=== PATIENT | female | born 1965 | race Caucasian/White ===

== ENCOUNTER 2017-12-07 21:50 | Emergency (ER) | payer MEDICAID, OTHER ==
[~2017-12-07] VITALS: Ht 172.7 cm; Wt 94.7 kg
[~2017-12-07 21:50] MED LIST: CITA-278 PO; CYCL-394 PO; HYDR-569 PO; IBUP-1984 PO; LEVO200T43 PO; LORA1TAB PO; NORCO10T PO; PHEN-873 PO
[2017-12-07 22:33] LABS: CLARITY,URINE CLEAR (Clear); COLOR,URINE YELLOW (Yellow); GLUCOSE, URINE NEGATIVE (Neg); KETONES,URINE NEGATIVE (Neg); LEUKOCYTE ESTERASE ,URINE NEGATIVE (Neg); NITRITES, URINE NEGATIVE (Neg); OCCULT BLOOD,URINE TRACE-INTACT (Neg); PH,URINE 5.5 (4.8-8.0); PROTEIN,URINE NEGATIVE (Neg); UROBILINOGEN,URINE 0.2 E.U/dL (0.2-1.0)
[2017-12-07 22:34] LABS: UA COLLECTION TYPE CLN CATCH MIDSTREAM
[2017-12-07 22:36] LABS: URINE HCG NEGATIVE (NEG)
[2017-12-07 22:40] LABS: BACTERIA,URINE NONE SEEN /HPF (Neg); MUCUS STRANDS FEW /LPF (Neg); RBC,URINE 0-2 /HPF (0-2); SQUAMOUS EPITHELIAL CELL,UR FEW /LPF (FEW); WBC,URINE NONE SEEN /HPF (0-4)
[2017-12-08] MEDS ORDERED: morphine 4 MG/ML inj SYRINge IV ONE (01:35)
[2017-12-08] MEDS ORDERED: ondansetron/PF 4mg/2ml inj IV ONE (01:35)
[2017-12-08] MEDS ORDERED: normal saline 1000ML IV soln IVB ONE (01:35)
[2017-12-08 01:53] LABS: BASOPHILS % (AUTO) 0.8 % (0-1); EOSINOPHILS # (AUTO) 0.2 X10'3 (0-0.9); EOSINOPHILS % (AUTO) 3.3 % (0-6); HEMATOCRIT 37.2 % (35.0-45.0); HEMOGLOBIN 12.8 g/dl (12.0-16.0); LYMPHOCYTES # (AUTO) 2.4 X10'3 (1.1-4.8); LYMPHOCYTES % (AUTO) 45.9 % (21-51); MEAN CORPUSCULAR HEMOGLOBIN 30.8 PG (27.0-31.0); MEAN CORPUSCULAR HGB CONC 34.4 % (33.0-36.5); MEAN CORPUSCULAR VOLUME 89.4 FL (78-98); MEAN PLATELET VOLUME 7.3 FL (7.4-10.4); MONOCYTES # (AUTO) 0.5 X10'3 (0-0.9); MONOCYTES % (AUTO) 8.9 % (2-12); NEUTROPHILS # (AUTO) 2.1 X10'3 (1.8-7.7); NEUTROPHILS % (AUTO) 41.1 % (42-75); PLATELET COUNT 250 X10'3 (140-440); RED BLOOD COUNT 4.16 X10'6 (4.20-5.60); RED CELL DISTRIBUTION WIDTH 13.3 % (11.5-14.5); WHITE BLOOD COUNT 5.2 X10'3 (4.5-11.0)
[2017-12-08 02:09] LABS: ALANINE AMINOTRANSFERASE 36 U/L (12-78); ALBUMIN 3.6 G/DL (3.4-5.0); ALBUMIN/GLOBULIN RATIO 0.9 (1.1-1.5); ALKALINE PHOSPHATASE 70 IU/L (46-116); ANION GAP 8 (8-16); ASPARTATE AMINO TRANSFERASE 27 U/L (10-37); BILIRUBIN,TOTAL 0.2 MG/DL (0.1-1.0); BLOOD UREA NITROGEN 17 MG/DL (7-18); BUN/CREATININE RATIO 18.5 (6.6-38.0); CHLORIDE 102 MMOL/L (99-107); CREATININE 0.92 MG/DL (0.40-0.90); GLUCOSE 109 MG/DL (70-104); LIPASE 186 U/L (73-393); MAGNESIUM 1.7 MG/DL (1.5-2.4); SODIUM 137 MMOL/L (135-145); TOTAL CARBON DIOXIDE 26.9 MMOL/L (24-32); TOTAL PROTEIN 7.8 G/DL (6.4-8.2); eGFR 65 ML/MIN
[2017-12-08 02:14] LABS: CALCIUM 9.1 MG/DL (8.5-10.1); POTASSIUM 3.9 MMOL/L (3.5-5.1)
[2017-12-08 03:15] VITALS: BP 129/65
[2017-12-08] MEDS ORDERED: GABA-532 PO (03:42)
[2017-12-08] MEDS ORDERED: ALPR1TAB2 PO (03:42)
[2017-12-08] MEDS ORDERED: MAGN296S50 PO (04:03)
== END 2017-12-08 04:26 | disposition home or self-care (01) ==
LOC: ER 21:51
DX: M54.5 Low back pain (principal); K59.00 Constipation, unspecified; R10.31 Right lower quadrant pain; R35.8 Other polyuria; R61 Generalized hyperhidrosis; G89.29 Other chronic pain; E78.00 Pure hypercholesterolemia, unspecified; Z90.49 Acquired absence of other specified parts of digestive tract; Z79.899 Other long term (current) drug therapy
CPT/HCPCS: 36415; 74176; 80053; 81001; 81025; 83690; 83735; 84484; 85025; 93005; 96374; 96375; 99285; J2270; J2405

== ENCOUNTER 2019-12-20 10:08 | Day surgery (SDC) | payer MEDICAID ==
[2019-12-12 15:18] LABS: BASOPHILS % (AUTO) 0.7 % (0-1); EOSINOPHILS # (AUTO) 0.1 X10'3 (0-0.9); EOSINOPHILS % (AUTO) 2.1 % (0-6); LYMPHOCYTES # (AUTO) 1.6 X10'3 (1.1-4.8); LYMPHOCYTES % (AUTO) 28.7 % (21-51); MEAN CORPUSCULAR HEMOGLOBIN 29.6 PG (27.0-31.0); MEAN CORPUSCULAR HGB CONC 33.7 g/dL (33.0-36.5); MEAN CORPUSCULAR VOLUME 87.7 FL (78-98); MEAN PLATELET VOLUME 6.7 FL (7.4-10.4); MONOCYTES # (AUTO) 0.5 X10'3 (0-0.9); MONOCYTES % (AUTO) 7.9 % (2-12); NEUTROPHILS # (AUTO) 3.4 X10'3 (1.8-7.7); NEUTROPHILS % (AUTO) 60.6 % (42-75); PRE OP HEMATOCRIT 38.9 % (35.0-45.0); PRE OP HEMOGLOBIN 13.1 g/dL (12.0-16.0); PRE OP PLATELET COUNT 220 X10'3 (140-440); RED BLOOD COUNT 4.43 X10'6 (4.20-5.60); RED CELL DISTRIBUTION WIDTH 13.2 % (11.5-14.5)
[2019-12-12 15:29] LABS: ALBUMIN 3.4 G/DL (3.4-5.0); ALBUMIN/GLOBULIN RATIO 0.9 (1.1-1.5); ALKALINE PHOSPHATASE 67 IU/L (46-116); BLOOD UREA NITROGEN 16 MG/DL (7-18); BUN/CREATININE RATIO 17.4 (6.6-38.0); CALCIUM 8.5 MG/DL (8.5-10.1); CHLORIDE 103 MMOL/L (99-107); CREATININE 0.92 MG/DL (0.40-0.90); PRE OP ALT 24 U/L (30-65); PRE OP ANION GAP 6 (8-16); PRE OP AST 20 U/L (10-37); PRE OP BILIRUB, TOTAL 0.2 MG/DL (0.0-1.0); PRE OP GLUCOSE 111 MG/DL (70-104); PRE OP SODIUM 140 MMOL/L (135-145); TOTAL CARBON DIOXIDE 31.2 MMOL/L (24-32); TOTAL PROTEIN 7.3 G/DL (6.4-8.2); eGFR 64 ML/MIN
[~2019-12-20] VITALS: Ht 170.2 cm; Wt 101.7 kg
[2019-12-20] VITALS (9 sets, daily range): BP systolic 111–127; BP diastolic 70–86
[~2019-12-20 10:08] MED LIST changes: -CITA-278 PO; +CITA20TA28 PO; -CYCL-394 PO; +GABA-532 PO; -HYDR-569 PO; -IBUP-1984 PO; +LEVO137T2 PO; -LEVO200T43 PO; -LORA1TAB PO; -NORCO10T PO; -PHEN-873 PO; +PROM25TA14 PO; +ceFAZolin 2gm in dextrose, iso 50 ML IV ONE; +famotidine 20mg tablet PO ONE; +ringers solution, lacted 1,000 ML IV SCH
[2019-12-20] MEDS ORDERED: methylPREDNISolone sod succ 125mg/2ml vial ONE (14:22)
[2019-12-20] MEDS ORDERED: BUPIVAcaine/PF 2.5 mg/ml (0.25%) 30ml vial ONE (14:22)
[2019-12-20] MEDS ORDERED: LIDOcaine 0.5% (5mg/ml) 50ml vial ONE (14:27)
[2019-12-20] MEDS ORDERED: MIDAZolam 5mg/5ml vial ONE (14:34)
[2019-12-20] MEDS ORDERED: fentaNYL/PF 50MCG/1 ML 2ML syringe ONE ×2 (14:34→14:52)
[2019-12-20] MEDS ORDERED: propofol inj 20 ML IV ONE (15:13)
--- NOTE | 2019-12-20 15:13 | NUR ---
from or on [facility]. no resp distress. skin warm and dry. moves fingers well. co headache. med with tylenol iv.
[2019-12-20] MEDS ORDERED: ringers solution, lacted 1,000 ML IV SCH (15:17)
[2019-12-20] MEDS ORDERED: ondansetron/PF 4mg/2ml inj IV PRN (15:20)
[2019-12-20] MEDS ORDERED: meperidine/PF 25mg/ml syringe IV PRN ×3 (15:20)
[2019-12-20] MEDS ORDERED: morphine 4 MG/ML inj SYRINge IV PRN (15:20)
[2019-12-20] MEDS ORDERED: morphine 2 MG/ML inj. syringe IV PRN (15:20)
[2019-12-20] MEDS ORDERED: proCHLORperazine 10 MG/2 ml inj IV PRN (15:20)
[2019-12-20] MEDS ORDERED: acetaminophen 1,000mg/100ml IV 100 ML IV SCH (15:20)
--- NOTE | 2019-12-20 16:49 | NUR ---
dc to home with son driving. doing very well. vss, dsg cdi. dc instructions explained to son and given to pt. fingers move well. ice on. cap refills brisk.
== END 2019-12-20 13:49 | disposition home or self-care (01) ==
LOC: PAS 10:08
PROVIDERS: ATTEND Orthopaedic Surgery
DX: G56.02 Carpal tunnel syndrome, left upper limb (principal); G56.22 Lesion of ulnar nerve, left upper limb; F32.9 Major depressive disorder, single episode, unspecified; F41.9 Anxiety disorder, unspecified; E03.9 Hypothyroidism, unspecified; E66.8 Other obesity; Z68.38 Body mass index [BMI] 38.0-38.9, adult; M06.9 Rheumatoid arthritis, unspecified; F17.210 Nicotine dependence, cigarettes, uncomplicated; Z98.890 Other specified postprocedural states; Z72.89 Other problems related to lifestyle; Z90.49 Acquired absence of other specified parts of digestive tract; Z79.899 Other long term (current) drug therapy; Z11.59 Encounter for screening for other viral diseases; Z82.61 Family history of arthritis; Z82.5 Family history of asthma and other chronic lower respiratory diseases; Z80.9 Family history of malignant neoplasm, unspecified
CPT/HCPCS: 36415; 64719; 64721; 80053; 82948; 85025; 93005; A6222; J0131; J2001; J2250; J2704; J2930; J3010; J3490; U0003; A4215; A6449; A7000; J7120